=== PATIENT | female | born 1985 | race Caucasian/White ===

== ENCOUNTER 2018-02-02 18:50 | Emergency (ER) | payer OTHER ==
[~2018-02-02] VITALS: Ht 165.1 cm; Wt 72.7 kg
[~2018-02-02 18:50] MED LIST: AMOXICILLIN 50500 MG PO; AMOXICILLIN 8751 TAB PO; CEFTIN 250250 MG/TAB PO; CEPHALEXIN500 M1 PO; CIPRO 500MG TA500 MG PO; FLAGYL500 MG PO; LORTAB 5/500 501 TAB PO; LORTAB ELIX0.5 MG/ML PO; NO HOME MEDICATIONS; NORCO 325 MG-51 TAB PO; PREDNISONE 5MG5 MG PO; PYRIDIUM200 M1 PO; TRIAMCINOLONE0.11 TP; ZITHROMAX 250M250 MG PO; ZOFRAN 4MG T4 MG/TAB PO; [UNRECOGNIZED DRUG - OTHER] ID
[2018-02-02 18:58] VITALS: BP 156/88; PULSE 108; TEMP 98.1
[2018-02-02] MEDS ORDERED: WELLBUTRIN XL150 MG PO (19:36)
== END 2018-02-02 19:40 | disposition home or self-care (01) ==
LOC: COL.ER 18:50
DX: H00.012 Hordeolum externum right lower eyelid (principal)

== ENCOUNTER → 2019-10-28 | Outpatient (CLI) | payer OTHER ==
[~2019-10-28] MED LIST changes: +WELLBUTRIN XL150 MG PO
== END ==
LOC: ZCOL.LAB 14:30
DX: J02.9 Acute pharyngitis, unspecified (principal); R19.7 Diarrhea, unspecified; Z20.828 Contact with and (suspected) exposure to other viral communicable diseases